=== PATIENT | male | born 1975 | race African-American/Black ===

== ENCOUNTER 2021-11-07 15:33 | Inpatient (IN) ==
--- NOTE | 2021-11-07 15:39 | ED Triage Note ---
Date of Service November 07, 2021 History of Present Illness This patient was briefly evaluated while in triage. An abbreviated physical exam was performed. This patient is a 46-year-old Male from [facility] with past medical history of incarcerated umbilical hernia repair on 11/01/2021 who presents to the ED for evaluation of constipation x2 days, vomiting, and "the gas they used in there keeps swelling up and going down." "They did an xray and they found a blockage and the front of my wound where they did the surgery is leaking. They said the hernia is popped back out." Physical Exam VITALS: Vitals are noted on the nurse's note and reviewed by myself. GENERAL: This is a 46 year old black male, in no acute distress, nondiaphoretic, well-developed well-nourished. Pt. handcuffed throughout triage. SKIN: No obvious rashes, edema, erythema HEAD: Normocephalic atraumatic. EYES: Conjunctivae without injection, sclerae without icterus. NECK: No JVD. LUNGS: No retractions or accessory muscle use. MUSCULOSKELETAL: Normal gait. NEURO: Patient was alert and oriented to person place and time. No focal neurological deficits. Initial orders for labs and / or imaging were placed and patient was placed in the waiting area until a bed is available. Please see further documentation for the full ED course. MDM / Impression Impression Impression: SBO (small bowel obstruction), Abdominal pain, Vomiting
[2021-11-07] MEDS ORDERED: SODIUM CHLORIDE 0.9% 1000ML 1,000 ML IV STA (15:40)
[2021-11-07] MEDS ORDERED: ONDANSETRON INJ 2 MG/ML 2 ML VIAL IV STA ×2 (15:40→19:50)
[2021-11-07 18:03] LABS: Basophils # (auto) 0.02 K/uL (0-0.2); Basophils % (auto) 0.3 %; Eosinophils # (auto) 0.12 K/uL (0-0.50); Eosinophils % (auto) 1.9 %; Hematocrit (blood only) 44.8 % (40.1-51.0); Hemoglobin 14.8 g/dl (14.0-18.0); Immature Granulocytes # (auto) 0.04 K/uL (0.00-0.02); Immature Granulocytes % (auto) 0.6 %; Lymphocytes % (auto) 27.3 %; Mean Corpuscular Hemoglobin 28.1 pg (25.0-34.0); Mean Corpuscular Volume 85.2 fL (80.0-100.0); Mean Platelet Volume 9.2 fL (9.4-12.4); Monocytes # (auto) 0.71 K/uL (0.24-0.82); Monocytes % (auto) 11.4 %; Neutrophils # (auto) 3.64 K/uL (1.4-6.5); Neutrophils % (auto) 58.5 %; Platelet Count 419 K/uL (130-400); RDW Standard Deviation 40.3 fL (36.4-46.3); Red Blood Count 5.26 M/uL (4.63-6.08); White Blood Count 6.23 K/ul (4.8-10.8)
[2021-11-07 18:46] LABS: Albumin Globulin Ratio 1.1 (0.9-2); Albumin Level 4.3 gm/dl (3.4-5.0); BUN Creatinine Ratio 9.2 (10-20); Bilirubin,Total 0.5 mg/dl (0.2-1.0); Creatinine Clr Calc Pharmacy 71.6 ml/min; Est GFR (African American) 76.2 ml/min; Est GFR (Non-African American) 65.8 ml/min; Globulin 3.8 gm/dl (2.5-4.0); Potassium 3.8 mmol/L (3.5-5.1); Total Protein 8.1 gm/dl (6.0-8.3)
[2021-11-07] MEDS ORDERED: IOVERSOL 350 MG 100mL Prefilled Syringe IV ONE (19:03)
--- NOTE | 2021-11-07 19:33 | CT Scan Report ---
ABDOMEN AND PELVIS CT WITH IV AND ORAL CONTRAST CT DOSE: 664.61 mGy.cm HISTORY: Acute generalized abdominal pain with prior abdominal hernia repair 6 days earlier. Acute na usea with vomiting. Abdominal pain s/p incarcerated hernia repair TECHNIQUE: Multiaxial CT images of the abdomen and pelvis were performed following the IV administrat ion of 94 cc of Optiray and oral contrast. A dose lowering technique was utilized adhering to the pr inciples of ANA. COMPARISON STUDY: None. FINDINGS: Clear lung bases. There is no pneumatosis or pneumoperitoneum. Unremarkable spleen, pancrea s, gallbladder and adrenal glands. The liver is also within normal limits. Patency of the hepatic and portal veins. 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 1.7 cm cyst of the supe rior pole left kidney. There are a few subcentimeter hypodensities of the kidneys which are too small to characterize. No hydronephrosis. Unremarkable urinary bladder. The prostate is upper limits of no rmal in size. Small fat filled left inguinal hernia. Aorta and IVC appear unremarkable. There is no l ymphadenopathy. Small fat filled left inguinal hernia. Small hiatal hernia with contrast within the distended distal esophagus. Small bowel obstruction with dilated air and contrast filled loops of small bowel within the central abdomen measuring up to 3.9 cm. Focal transition point is present within the abdominal left lower quadrant on image 246 series 3. Moderate sized umbilical/supraumbilical hernia, diastases of 5.2 x 10.2 cm. The hernia sac contains mesenteric edema with trace ascites, mesenteric fat and nondilated contrast-filled loops of small bow el. Small volume of ascites dependent pelvis. Colonic diverticulosis. Moderate fecal retention. The a ppendix is fluid-filled and measures within the upper limits of normal at 7 mm. Fluid within the cecu m. No acute fracture. IMPRESSION: 1. At least partial small bowel obstruction with transition point within the abdominal left lower alisa drant. Contrast extends into decompressed loops of small bowel distal to the site of narrowing. 2. Moderate sized ventral abdominal wall hernia contains mesenteric fat and decompressed loops of sma ll bowel. 3. Mesenteric edema with trace abdominal pelvic ascites. 4. No pneumatosis or pneumoperitoneum. 5. Air-fluid levels are noted within the colon. The appendix is also fluid-filled and measures within the upper limits of normal at 7 mm. Acute appendicitis is considered unlikely. Clinical follow-up re commended. ACT 112: Negative or not required by law. The above report was generated using voice recognition software. It may contain grammatical, syntax o r spelling errors. Electronically signed by: Marito Mahoney M.D. 11/07/2021 7:31 PM
[2021-11-07] MEDS ORDERED: SODIUM CHLORIDE 0.9% 1000ML 1,000 ML IV ONE (19:39)
[2021-11-07] MEDS ORDERED: MoRPHine SULFATE 4 MG/ML 1 ML CARP\\VIAL IV STA (19:50)
--- NOTE | 2021-11-07 19:54 | Emergency Department Note ---
Impression & Plan SBO (small bowel obstruction), Abdominal pain, Vomiting ED Provider Note NAME: SAVANNAH [id number] KAMI AGE: 46 SEX: M : 1975 ARRIVES VIA: Walk-In INFORMANT: Patient ED PROVIDER(S): Salazar More DO CHIEF COMPLAINT: abdominal pain N/V HPI: Patient is a 46-year-old male who presents the ER with a past medical history of an incarcerated umbilical hernia for nausea and vomiting. His surgery performed by Dr. Mcrae was done on the . Since being discharged his pain was improved as well as hernia. [facility] in the [facility]. Later that night he was having nausea, vomiting, and since then he has not been able to eat anything and notes that anything he drinks he vomits back up unless he takes very small sips. He has some mild discomfort around the incision site and has been having some clear oozing. Denies any dysuria, urgency, or frequency. No other exacerbating or remitting factors. He notes this all started back up after he was coughing at the [facility] after his surgery. ROS: See above HPI for pertinent positives & negatives. A total of 10 systems reviewed and were otherwise negative. PAST MEDICAL HISTORY:See Below PAST SURGICAL HISTORY:See Below FAMILY HISTORY:See Below SOCIAL HISTORY:See Below HOME MEDICATIONS:See Below ALLERGIES:See Below VITALS:See Below PHYSICAL EXAMINATION: GENERAL: Sitting up in bed, alert, well appearing, well nourished, no distress, non-toxic EYE EXAM: normal conjunctiva. OROPHARYNX: no exudate, no erythema, lips, buccal mucosa, and tongue normal and mucous membranes are moist NECK: supple, no nuchal rigidity, no adenopathy, non-tender LUNGS: Clear to auscultation. Normal chest wall mechanics HEART: no murmurs, S1 normal and S2 normal ABDOMEN: abdomen soft, mild tenderness periumbilically with a protruding umbilicus which is reducible but then protrudes again. Incision appears to be clean and dry but does appear to be dry serous fluid on her underwear where it was leaking. UPPER EXTREMITIES: upper extremities are grossly normal. LOWER EXTREMITIES: No pitting edema. NEURO EXAM: Normal sensorium, cranial nerves II-XII grossly intact, normal speech, no gross weakness of arms, no gross weakness of legs. MEDICAL DECISION MAKING: Patient is a 46-year-old male who presents ER for above-stated complaint. IV was established blood work was obtained. Labs show no significant leukocytosis or anemia. BMP along with LFTs bilirubin and lipase is unremarkable. UA with small amount hematuria. COVID-negative. Patient was given IV fluids and morphine. CT abdomen pelvis showed a partial small bowel obstruction. Discussed with Dr. Pimentel who evaluate the patient at bedside and recommended admission to the hospitalist. Discussed with Dr. Israel Durham for further evaluation admission. Triage Nursing notes reviewed. Limited review of prior medical records performed Vital Signs: reviewed and remarkable for tachy Differential diagnosis: Differential diagnoses includes but is not limited to gastritis, peptic ulcer disease, GERD, gallbladder disease, pancreatitis, small bowel obstruction, acute coronary syndrome, pericarditis, ischemic bowel, irritable bowel disease, irritable bowel syndrome, appendicitis, diverticulitis, malignancy, hernia, urinary tract infection, torsion, /ectopic (if female), perforation, trauma, infectious. ER treatment provided: See below Diagnostics interpreted by me: ECG: none Cardiac Monitoring: An order was placed for continuous cardiac monitoring. The monitor shows a rate of 82 with sinus rhythm. Laboratory studies: As stated above and show below. Imaging studies: CT abdomen pelvis as described above Consultation(s): Discussed with Dr. Lozano for admission Discussed with Dr. Pimentel who recommended consulting the hospitalist for admission Procedures: none Critical Care: None Past Med/Surg History Medical History (Updated 11/07/21 @ 22:27 by Salazar More DO) Asthma GERD (gastroesophageal reflux disease) History of hemorrhoids removal of hemorrhoids Hyperlipemia Incarcerated umbilical hernia Joint pain Surgical History (Updated 11/02/21 @ 10:48 by Padmaja Coreas RN) H/O umbilical hernia repair (11/01/21) Open ventral and umbilical hernia Repair with Mesh, incarcerated (Not Applicable) - Jorje Mcrae DO, FACS H/O ventral hernia repair (~11/01/21) Open ventral and umbilical hernia Repair with Mesh, incarcerated (Not Applicable) - Jorje Mcrae DO, FACS History of wisdom tooth extraction Social History Smoking Status: Never smoker Preferred Language: Guamanian Communication Ability: Effective 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 Beliefs That Will Affect Care: None Current Living Situation: Other Current Living Situation Comment: incarcerated at [facility] Feels Safe at Home: Yes Allergies Allergies Allergy/AdvReac Type Severity Reaction Status Date / Time wool Allergy Mild Unknown Verified 11/07/21 20:06 Home Meds Home Medications Medication Instructions Recorded Confirmed albuterol sulfate 90 mcg/actuation 2 puff inhalation QID PRN 08/24/21 11/07/21 aerosol inhaler Shortness Of Breath montelukast 10 mg tablet 10 mg PO DAILY 08/24/21 11/07/21 lactulose 10 gram/15 mL (15 mL) 20 g PO BID PRN Constipation 11/07/21 11/07/21 oral solution rosuvastatin 10 mg tablet 10 mg PO DAILY 11/07/21 11/07/21 Results & Data (ED) Vital Signs Vital Signs - 24 hr 11/07/21 15:37 11/07/21 20:01 11/07/21 20:30 Temperature 36.8 C Temperature Source Temporal Artery Scan Pulse Rate 96 H 73 86 Pulse Rate from SpO2 Sensor 76 84 Respiratory Rate 20 23 16 Respiratory Effort / Characteristics Non-Labored Spontaneous Respiratory Depth Normal Respiratory Pattern Regular Blood Pressure 132/92 119/84 Blood Pressure Mean 105 95 Pulse Oximetry 97 97 98 Oxygen Delivery Method Room Air Room Air Sepsis Recent Fever Within 48 Hours No Sepsis New/Unexplained Change in Mental Status No Sepsis Action Taken by Nursing No Action Required 11/07/21 21:20 11/07/21 21:20 11/07/21 21:30 Temperature Temperature Source Pulse Rate 77 75 Pulse Rate from SpO2 Sensor 77 75 Respiratory Rate 19 23 Respiratory Effort / Characteristics Respiratory Depth Respiratory Pattern Blood Pressure 115/80 115/80 140/87 Blood Pressure Mean 91 91 104 Pulse Oximetry 98 98 Oxygen Delivery Method Room Air Room Air Sepsis Recent Fever Within 48 Hours Sepsis New/Unexplained Change in Mental Status Sepsis Action Taken by Nursing 11/07/21 22:00 Temperature Temperature Source Pulse Rate 80 Pulse Rate from SpO2 Sensor 80 Respiratory Rate 18 Respiratory Effort / Characteristics Respiratory Depth Respiratory Pattern Blood Pressure 143/87 H Blood Pressure Mean 105 Pulse Oximetry 96 Oxygen Delivery Method Room Air Sepsis Recent Fever Within 48 Hours Sepsis New/Unexplained Change in Mental Status Sepsis Action Taken by Nursing Laboratory Data Result diagrams: 11/07/21 17:49 11/07/21 17:49 Lab Results 11/07/21 11/07/21 11/07/21 Range/Units 17:49 17:49 17:49 WBC 6.23 (4.8-10.8) K/ul RBC 5.26 (4.63-6.08) M/uL Hgb 14.8 (14.0-18.0) g/dl Hct 44.8 (40.1-51.0) % MCV 85.2 (80.0-100.0) fL MCH 28.1 (25.0-34.0) pg MCHC 33.0 (32.0-36.0) g/dL RDW Std Deviation 40.3 (36.4-46.3) fL RDW Coeff of Roc 13.0 (11.5-14.5) % Plt Count 419 H (130-400) K/uL MPV 9.2 L (9.4-12.4) fL Immature Gran % (Auto) 0.6 % Neut % (Auto) 58.5 % Lymph % (Auto) 27.3 % Gladwin % (Auto) 11.4 % Eos % (Auto) 1.9 % Baso % (Auto) 0.3 % Neut # (Auto) 3.64 (1.4-6.5) K/uL Lymph # (Auto) 1.70 (1.2-3.4) K/uL Gladwin # (Auto) 0.71 (0.24-0.82) K/uL Eos # (Auto) 0.12 (0-0.50) K/uL Baso # (Auto) 0.02 (0-0.2) K/uL Immature Gran # (Auto) 0.04 H (0.00-0.02) K/uL Sodium 137 (136-145) mmol/L Potassium 3.8 (3.5-5.1) mmol/L Chloride 97 L (98-107) mmol/L Carbon Dioxide 32 (21-32) mmol/L Anion Gap 8 (3-11) BUN 12 (6-23) mg/dl Creatinine 1.31 (0.6-1.4) mg/dl Est Cr Clr Drug Dosing 71.6 ml/min Est GFR ( Amer) 76.2 ml/min Est GFR (Non-Af Amer) 65.8 ml/min BUN/Creatinine Ratio 9.2 L (10-20) Glucose 103 H (70-99(Fasting)) mg/dl Lactate 1.0 (0.4-2.0) mmol/L Calcium 10.0 (8.5-10.1) mg/dl Magnesium (1.7-2.4) mg/dl Total Bilirubin 0.5 (0.2-1.0) mg/dl AST 20 (13-39) U/L ALT 32 (7-52) U/L Alkaline Phosphatase 61 (34-104) U/L Total Protein 8.1 (6.0-8.3) gm/dl Albumin 4.3 (3.4-5.0) gm/dl Globulin 3.8 (2.5-4.0) gm/dl Albumin/Globulin Ratio 1.1 (0.9-2) Lipase 11 (11-82) U/L Urine Color Urine Appearance (Clear) Urine pH (4.5-7.5) Ur Specific Karthaus (1.000-1.030) Urine Protein (Negative) Urine Glucose (UA) (Negative) Urine Ketones (Negative) Urine Blood (Negative) Urine Nitrite (Negative) Urine Bilirubin (Negative) Urine Urobilinogen (Negative) Ur Leukocyte Esterase (Negative) Urine WBC (Auto) (0-5) /hpf Urine RBC (Auto) (0-4) /hpf U Hyaline Cast (Auto) (0-5) /lpf U Epithel Cells (Auto) (0-5) /lpf Urine Bacteria (Auto) (Negative) SARS-CoV-2, RNA, NAAT (NEGATIVE) 11/07/21 11/07/21 11/07/21 Range/Units 19:58 19:58 20:08 WBC (4.8-10.8) K/ul RBC (4.63-6.08) M/uL Hgb (14.0-18.0) g/dl Hct (40.1-51.0) % MCV (80.0-100.0) fL MCH (25.0-34.0) pg MCHC (32.0-36.0) g/dL RDW Std Deviation (36.4-46.3) fL RDW Coeff of Roc (11.5-14.5) % Plt Count (130-400) K/uL MPV (9.4-12.4) fL Immature Gran % (Auto) % Neut % (Auto) % Lymph % (Auto) % Gladwin % (Auto) % Eos % (Auto) % Baso % (Auto) % Neut # (Auto) (1.4-6.5) K/uL Lymph # (Auto) (1.2-3.4) K/uL Gladwin # (Auto) (0.24-0.82) K/uL Eos # (Auto) (0-0.50) K/uL Baso # (Auto) (0-0.2) K/uL Immature Gran # (Auto) (0.00-0.02) K/uL Sodium (136-145) mmol/L Potassium (3.5-5.1) mmol/L Chloride (98-107) mmol/L Carbon Dioxide (21-32) mmol/L Anion Gap (3-11) BUN (6-23) mg/dl Creatinine (0.6-1.4) mg/dl Est Cr Clr Drug Dosing ml/min Est GFR ( Amer) ml/min Est GFR (Non-Af Amer) ml/min BUN/Creatinine Ratio (10-20) Glucose (70-99(Fasting)) mg/dl Lactate 0.8 (0.4-2.0) mmol/L Calcium (8.5-10.1) mg/dl Magnesium (1.7-2.4) mg/dl Total Bilirubin (0.2-1.0) mg/dl AST (13-39) U/L ALT (7-52) U/L Alkaline Phosphatase (34-104) U/L Total Protein (6.0-8.3) gm/dl Albumin (3.4-5.0) gm/dl Globulin (2.5-4.0) gm/dl Albumin/Globulin Ratio (0.9-2) Lipase (11-82) U/L Urine Color Yellow Urine Appearance Clear (Clear) Urine pH 6.5 (4.5-7.5) Ur Specific Karthaus > 1.045 H (1.000-1.030) Urine Protein Negative (Negative) Urine Glucose (UA) Negative (Negative) Urine Ketones Trace H (Negative) Urine Blood Trace H (Negative) Urine Nitrite Negative (Negative) Urine Bilirubin Negative (Negative) Urine Urobilinogen Negative (Negative) Ur Leukocyte Esterase Negative (Negative) Urine WBC (Auto) 1-5 (0-5) /hpf Urine RBC (Auto) 0-4 (0-4) /hpf U Hyaline Cast (Auto) 0 (0-5) /lpf U Epithel Cells (Auto) 0-5 (0-5) /lpf Urine Bacteria (Auto) Negative (Negative) SARS-CoV-2, RNA, NAAT NEGATIVE (NEGATIVE) 11/07/21 Range/Units 20:09 WBC (4.8-10.8) K/ul RBC (4.63-6.08) M/uL Hgb (14.0-18.0) g/dl Hct (40.1-51.0) % MCV (80.0-100.0) fL MCH (25.0-34.0) pg MCHC (32.0-36.0) g/dL RDW Std Deviation (36.4-46.3) fL RDW Coeff of Roc (11.5-14.5) % Plt Count (130-400) K/uL MPV (9.4-12.4) fL Immature Gran % (Auto) % Neut % (Auto) % Lymph % (Auto) % Gladwin % (Auto) % Eos % (Auto) % Baso % (Auto) % Neut # (Auto) (1.4-6.5) K/uL Lymph # (Auto) (1.2-3.4) K/uL Gladwin # (Auto) (0.24-0.82) K/uL Eos # (Auto) (0-0.50) K/uL Baso # (Auto) (0-0.2) K/uL Immature Gran # (Auto) (0.00-0.02) K/uL Sodium (136-145) mmol/L Potassium (3.5-5.1) mmol/L Chloride (98-107) mmol/L Carbon Dioxide (21-32) mmol/L Anion Gap (3-11) BUN (6-23) mg/dl Creatinine (0.6-1.4) mg/dl Est Cr Clr Drug Dosing ml/min Est GFR ( Amer) ml/min Est GFR (Non-Af Amer) ml/min BUN/Creatinine Ratio (10-20) Glucose (70-99(Fasting)) mg/dl Lactate (0.4-2.0) mmol/L Calcium (8.5-10.1) mg/dl Magnesium 2.1 (1.7-2.4) mg/dl Total Bilirubin (0.2-1.0) mg/dl AST (13-39) U/L ALT (7-52) U/L Alkaline Phosphatase (34-104) U/L Total Protein (6.0-8.3) gm/dl Albumin (3.4-5.0) gm/dl Globulin (2.5-4.0) gm/dl Albumin/Globulin Ratio (0.9-2) Lipase (11-82) U/L Urine Color Urine Appearance (Clear) Urine pH (4.5-7.5) Ur Specific Karthaus (1.000-1.030) Urine Protein (Negative) Urine Glucose (UA) (Negative) Urine Ketones (Negative) Urine Blood (Negative) Urine Nitrite (Negative) Urine Bilirubin (Negative) Urine Urobilinogen (Negative) Ur Leukocyte Esterase (Negative) Urine WBC (Auto) (0-5) /hpf Urine RBC (Auto) (0-4) /hpf U Hyaline Cast (Auto) (0-5) /lpf U Epithel Cells (Auto) (0-5) /lpf Urine Bacteria (Auto) (Negative) SARS-CoV-2, RNA, NAAT (NEGATIVE) Administered Medications Discontinued Medications Sodium Chloride (Nss 1000ml) 1,000 mls @ 999 mls/hr IV .Q1H1M STA Stop: 11/07/21 16:40 Last Infusion: 11/07/21 20:06 Dose: 0 mls/hr Documented By: Admin: 11/07/21 17:58 Dose: 999 mls/hr Documented By: SOHAIL Sodium Chloride (Nss 1000ml) 1,000 mls @ 999 mls/hr IV .Q1H1M ONE Stop: 11/07/21 20:39 Last Infusion: 11/07/21 21:32 Dose: 0 mls/hr Documented By: Admin: 11/07/21 20:15 Dose: 999 mls/hr Documented By: Ioversol (Ioversol 350 Mg 100ml Prefilled Syringe) 94 ml IV ONCE ONE Stop: 11/07/21 19:04 Last Admin: 11/07/21 19:04 Dose: 94 ml Documented By: SPRING Morphine Sulfate (Morphine Sulfate 4 Mg/Ml 1 Ml Carp\Vial) 4 mg IV NOW STA Stop: 11/07/21 19:51 Last Admin: 11/07/21 20:11 Dose: 4 mg Documented By: Ondansetron HCl (Ondansetron Inj 2 Mg/Ml 2 Ml Vial) 4 mg IV NOW STA Stop: 11/07/21 15:41 Last Admin: 11/07/21 17:58 Dose: Not Given Documented By: SOHAIL Ondansetron HCl (Ondansetron Inj 2 Mg/Ml 2 Ml Vial) 4 mg IV NOW STA Stop: 11/07/21 19:51 Last Admin: 11/07/21 20:13 Dose: 4 mg Documented By: Imaging Data Radiologist's Impression: Abdomen/Pelvis CT 11/07/21 15:[address] WITH IV AND ORAL CONTRAST CT DOSE: 664.61 mGy.cm HISTORY: Acute generalized abdominal pain with prior abdominal hernia repair 6 days earlier. Acute nausea with vomiting. Abdominal pain s/p incarcerated hernia repair TECHNIQUE: Multiaxial CT images of the abdomen and pelvis were performed following the IV administration of 94 cc of Optiray and oral contrast. A dose lowering technique was utilized adhering to the principles of ALARA. COMPARISON STUDY: None. FINDINGS: Clear lung bases. There is no pneumatosis or pneumoperitoneum. Unremarkable spleen, pancreas, gallbladder and adrenal glands. The liver is also within normal limits. Patency of the hepatic and portal veins. 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 1.7 cm cyst of the superior pole left kidney. There are a few subcentimeter hypodensities of the kidneys wh ich are too small to characterize. No hydronephrosis. Unremarkable urinary bladder. The prostate is upper limits of normal in size. Small fat filled left inguinal hernia. Aorta and IVC appear unremarkable. There is no lymphadenopathy. Small fat filled left inguinal hernia. Small hiatal hernia with contrast within the distended distal esophagus. Small bowel obstruction with dilated air and contrast filled loops of small bowel within the central abdomen measuring up to 3.9 cm. Focal transition point is present within the abdominal left lower quadrant on image 246 series 3. Moderate sized umbilical/supraumbilical hernia, diastases of 5.2 x 10.2 cm. The hernia sac contains mesenteric edema with trace ascites, mesenteric fat and nondilated contrast-filled loops of small bowel. Small volume of ascites dependent pelvis. Colonic diverticulosis. Moderate fecal retention. The appendix is fluid-filled and measures within the upper limits of normal at 7 mm. Fluid within the cecum. No acute fracture. IMPRESSION: 1. At least partial small bowel obstruction with transition point within the abdominal left lower quadrant. Contrast extends into decompressed loops of small bowel distal to the site of narrowing. 2. Moderate sized ventral abdominal wall hernia contains mesenteric fat and decompressed loops of small bowel. 3. Mesenteric edema with trace abdominal pelvic ascites. 4. No pneumatosis or pneumoperitoneum. 5. Air-fluid levels are noted within the colon. The appendix is also fluid- filled and measures within the upper limits of normal at 7 mm. Acute appendicitis is considered unlikely. Clinical follow-up recommended. ACT 112: Negative or not required by law. The above report was generated using voice recognition software. It may contain grammatical, syntax or spelling errors. Electronically signed by: Marito Mahoney M.D. 11/07/2021 7:31 PM Discharge Plan Visit Data Chief Complaint: Constipation Stated Complaint: constipation, abdominal pain, surgical wound leak ED Provider: Salazar More Discharge Problem: SBO (small bowel obstruction), Abdominal pain, Vomiting Forms Stand Alone Forms: [employer] Prescriptions Prescriptions: No Action montelukast 10 mg tablet 10 mg PO DAILY albuterol sulfate 90 mcg/actuation HFA aerosol inhaler 2 puff inhalation QID PRN (Reason: Shortness Of Breath) rosuvastatin 10 mg Tablet 10 mg PO DAILY lactulose 10 gram/15 mL (15 mL) Solution 20 g PO BID PRN (Reason: Constipation) Referrals Referrals: Basil Herring MD [Outside Practitioners] -
[2021-11-07 20:29] LABS: Appearance Urine Clear (Clear); Bacteria Urine Automated Negative (Negative); Bilirubin Urine Negative (Negative); Blood Urine Trace (Negative); Cast Urine Automated 0 /lpf (0-5); Color Urine Yellow; Epithelial Cell Urine Auto 0-5 /lpf (0-5); Glucose Urine UA Negative (Negative); Ketones Urine Trace (Negative); Leukocyte Esterase Urine Negative (Negative); Nitrite Urine Negative (Negative); Protein Urine Negative (Negative); RBC Urine Automated 0-4 /hpf (0-4); Specific Gravity Urine > 1.045 (1.000-1.030); Urobilinogen Urine Negative (Negative); pH Urine 6.5 (4.5-7.5)
--- NOTE | 2021-11-07 22:11 | Surgery Consultation ---
Date of Consultation November 07, 2021 Assessment & Plan (1) SBO (small bowel obstruction): pt is a 46 year-old male who presents to Er with S/P open repair incarcerated umbilical hernia by Dr. Law one week ago, pt presents to Er with abdominal pain, nausea and vomiting, for 6 days, IMP: PSBO, recurrent ventral hernia, plan, admit to hospital, conservative treatment first, NPO, iv fluid, control pain, repeat labs in morning, NG tube, pt prefer Dr Law to take acre him, I will D/W Dr. Law in morning, pt agrees with the plan, I answered all questions, History of Present Illness Reason for Consultation: PSBO Requesting Physician: Salazar More MD History of Present Illness CHIEF COMPLAINT: abdominal pain N/V HPI: Patient is a 46-year-old male who presents the ER with a past medical history of an incarcerated umbilical hernia for nausea vomiting. His surgery performed by Dr. Mcrae was done on the . Since being discharged his pain was improved as well as hernia. When he [facility] Later that night he was having nausea vomiting and since then he has not been able to eat anything and notes that anything he drinks he vomits back up unless he takes very small sips. He has some mild discomfort around the incision site and has been having some clear oozing. Denies any dysuria urgency or frequency. No other exacerbating or remitting factors. He notes this all started back up after he was coughing at the [facility] after his surgery. I ( Kirstin elmore MD ) got a call for consult PSBO, I reviewed pt's H/P, labs, CT scan with pt, ROS: See above HPI for pertinent positives & negatives. A total of 10 systems reviewed and were otherwise negative. Allergies Allergy/AdvReac Type Severity Reaction Status Date / Time wool Allergy Mild Unknown Verified 11/07/21 20:06 Home Medications Medication Instructions Recorded Confirmed Type albuterol sulfate 90 mcg/actuation 2 puff inhalation QID PRN 08/24/21 11/07/21 History aerosol inhaler Shortness Of Breath montelukast 10 mg tablet 10 mg PO DAILY 08/24/21 11/07/21 History lactulose 10 gram/15 mL (15 mL) 20 g PO BID PRN Constipation 11/07/21 11/07/21 History oral solution rosuvastatin 10 mg tablet 10 mg PO DAILY 11/07/21 11/07/21 History Patient History Medical History (Updated 11/07/21 @ 22:13 by Kirstin Elmore MD) Asthma GERD (gastroesophageal reflux disease) History of hemorrhoids removal of hemorrhoids Hyperlipemia Incarcerated umbilical hernia Joint pain Surgical History (Updated 11/02/21 @ 10:48 by Padmaja Coreas RN) H/O umbilical hernia repair (11/01/21) Open ventral and umbilical hernia Repair with Mesh, incarcerated (Not Applicable) - Jorje Mcrae DO, FACS H/O ventral hernia repair (~11/01/21) Open ventral and umbilical hernia Repair with Mesh, incarcerated (Not Applica ble) - Jorje Mcrae DO, FACS History of wisdom tooth extraction Social History Smoking Status: Never smoker Preferred Language: Bhutanese Communication Ability: Effective 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 Beliefs That Will Affect Care: None Current Living Situation: Other Current Living Situation Comment: incarcerated at [facility] Feels Safe at Home: Yes Physical Exam Constitutional: WD/WN, vitals as above Eyes: PERRL, conjunctivae normal, anicteric sclerae no distress Neck: trachea midline, no thyromegaly Respiratory: normal respiratory effort, lungs clear to auscultation Cardiovascular: RRR, no murmur, no edema Gastrointestinal (Abdomen): soft, bulging on umbilical area, mild redness, mild tenderness ,m no rebound pain, no distend, BS +, Musculoskeletal: no cyanosis or clubbing, extremities motor strength 5/5 Neurologic: patellar DTR's 2+ bilat, sensation intact Psychiatric: A+Ox3, euthymic affect Results & Data ([facility]) Vital Signs (Past 12 Hours) Vital Signs Temp Pulse Resp BP Pulse Ox O2 Del Method 11/07/21 21:30 75 23 140/87 98 Room Air 11/07/21 21:20 77 19 115/80 98 Room Air 11/07/21 21:20 115/80 11/07/21 20:30 86 16 119/84 98 Room Air 11/07/21 20:01 73 23 97 11/07/21 15:37 36.8 C 96 H 20 132/92 97 Room Air Laboratory Results Abnormal lab results 11/07/21 11/07/21 11/07/21 Range/Units 17:49 17:49 19:58 Plt Count 419 H (130-400) K/uL MPV 9.2 L (9.4-12.4) fL Immature Gran # (Auto) 0.04 H (0.00-0.02) K/uL Chloride 97 L (98-107) mmol/L BUN/Creatinine Ratio 9.2 L (10-20) Glucose 103 H (70-99(Fasting)) mg/dl Ur Specific [place] > 1.045 H (1.000-1.030) Urine Ketones Trace H (Negative) Urine Blood Trace H (Negative) Diagnostic Findings ABDOMEN AND PELVIS CT WITH IV AND ORAL CONTRAST CT DOSE: 664.61 mGy.cm HISTORY: Acute generalized abdominal pain with prior abdominal hernia repair 6 days earlier. Acute nausea with vomiting. Abdominal pain s/p incarcerated hernia repair TECHNIQUE: Multiaxial CT images of the abdomen and pelvis were performed following the IV administration of 94 cc of Optiray and oral contrast. A dose lowering technique was utilized adhering to the principles of ALARA. COMPARISON STUDY: None. FINDINGS: Clear lung bases. There is no pneumatosis or pneumoperitoneum. Unremarkable spleen, pancreas, gallbladder and adrenal glands. The liver is also within normal limits. Patency of the hepatic and portal veins. 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 1.7 cm cyst of the superior pole left kidney. There are a few subcentimeter hypodensities of the kidneys which are too small to characterize. No hydronephrosis. Unremarkable urinary bladder. The prostate is upper limits of normal in size. Small fat filled left inguinal hernia. Aorta and IVC appear unremarkable. There is no lymphadenopathy. Small fat filled left inguinal hernia. Small hiatal hernia with contrast within the distended distal esophagus. Small bowel obstruction with dilated air and contrast filled loops of small bowel within the central abdomen measuring up to 3.9 cm. Focal transition point is present within the abdominal left lower quadrant on image 246 series 3. Moderate sized umbilical/supraumbilical hernia, diastases of 5.2 x 10.2 cm. The hernia sac contains mesenteric edema with trace ascites, mesenteric fat and nondilated contrast-filled loops of small bowel. Small volume of ascites dependent pelvis. Colonic diverticulosis. Moderate fecal retention. The appendix is fluid-filled and measures within the upper limits of normal at 7 mm. Fluid within the cecum. No acute fracture. IMPRESSION: 1. At least partial small bowel obstruction with transition point within the abdominal left lower quadrant. Contrast extends into decompressed loops of small bowel distal to the site of narrowing. 2. Moderate sized ventral abdominal wall hernia contains mesenteric fat and decompressed loops of small bowel. 3. Mesenteric edema with trace abdominal pelvic ascites. 4. No pneumatosis or pneumoperitoneum. 5. Air-fluid levels are noted within the colon. The appendix is also fluid- filled and measures within the upper limits of normal at 7 mm. Acute appendicitis is considered unlikely. Clinical follow-up recommended. ACT 112: Negative or not required by law.
--- NOTE | 2021-11-07 22:34 | History & Physical Report ---
Date of Service November 07, 2021 History of Present Illness Primary Care Provider: [facility] [place] Allergies Allergy/AdvReac Type Severity Reaction Status Date / Time wool Allergy Mild Unknown Verified 11/07/21 20:06 Home Medications Medication Instructions Recorded Confirmed Type albuterol sulfate 90 mcg/actuation 2 puff inhalation QID PRN 08/24/21 11/07/21 History aerosol inhaler Shortness Of Breath montelukast 10 mg tablet 10 mg PO DAILY 08/24/21 11/07/21 History lactulose 10 gram/15 mL (15 mL) 20 g PO BID PRN Constipation 11/07/21 11/07/21 History oral solution rosuvastatin 10 mg tablet 10 mg PO DAILY 11/07/21 11/07/21 History Past Med/Surg History Medical History (Updated 11/07/21 @ 22:27 by Salazar More DO) Asthma GERD (gastroesophageal reflux disease) History of hemorrhoids removal of hemorrhoids Hyperlipemia Incarcerated umbilical hernia Joint pain Surgical History (Updated 11/02/21 @ 10:48 by Padmaja Coreas RN) H/O umbilical hernia repair (11/01/21) Open ventral and umbilical hernia Repair with Mesh, incarcerated (Not Applicable) - Jorje Mcrae DO, FACS H/O ventral hernia repair (~11/01/21) Open ventral and umbilical hernia Repair with Mesh, incarcerated (Not Applicable) - Jorje Mcrae DO, FACS History of wisdom tooth extraction Social History Smoking Status: Never smoker Preferred Language: Uzbek Communication Ability: Effective 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 Beliefs That Will Affect Care: None Current Living Situation: Other Current Living Situation Comment: incarcerated at [facility] Feels Safe at Home: Yes Results & Data Results & Data ([facility]) Vital Signs (Past 12 Hours) Vital Signs Temp Pulse Resp BP Pulse Ox O2 Del Method 11/07/21 22:00 80 18 143/87 H 96 Room Air 11/07/21 21:30 75 23 140/87 98 Room Air 11/07/21 21:20 77 19 115/80 98 Room Air 11/07/21 21:20 115/80 11/07/21 20:30 86 16 119/84 98 Room Air 11/07/21 20:01 73 23 97 11/07/21 15:37 36.8 C 96 H 20 132/92 97 Room Air Laboratory Results Laboratory Results WBC 6.23 K/ul (4.8-10.8) 11/07/21 17:49 RBC 5.26 M/uL (4.63-6.08) 11/07/21 17:49 Hgb 14.8 g/dl (14.0-18.0) 11/07/21 17:49 Hct 44.8 % (40.1-51.0) 11/07/21 17:49 MCV 85.2 fL (80.0-100.0) 11/07/21 17:49 MCH 28.1 pg (25.0-34.0) 11/07/21 17:49 MCHC 33.0 g/dL (32.0-36.0) 11/07/21 17:49 RDW Std Deviation 40.3 fL (36.4-46.3) 11/07/21 17:49 RDW Coeff of Roc 13.0 % (11.5-14.5) 11/07/21 17:49 Plt Count 419 K/uL (130-400) H 11/07/21 17:49 MPV 9.2 fL (9.4-12.4) L 11/07/21 17:49 Immature Gran % (Auto) 0.6 % 11/07/21 17:49 Neut % (Auto) 58.5 % 11/07/21 17:49 Lymph % (Auto) 27.3 % 11/07/21 17:49 Edmunds % (Auto) 11.4 % 11/07/21 17:49 Eos % (Auto) 1.9 % 11/07/21 17:49 Baso % (Auto) 0.3 % 11/07/21 17:49 Neut # (Auto) 3.64 K/uL (1.4-6.5) 11/07/21 17:49 Lymph # (Auto) 1.70 K/uL (1.2-3.4) 11/07/21 17:49 Edmunds # (Auto) 0.71 K/uL (0.24-0.82) 11/07/21 17:49 Eos # (Auto) 0.12 K/uL (0-0.50) 11/07/21 17:49 Baso # (Auto) 0.02 K/uL (0-0.2) 11/07/21 17:49 Immature Gran # (Auto) 0.04 K/uL (0.00-0.02) H 11/07/21 17:49 Sodium 137 mmol/L (136-145) 11/07/21 17:49 Potassium 3.8 mmol/L (3.5-5.1) 11/07/21 17:49 Chloride 97 mmol/L (98-107) L 11/07/21 17:49 Carbon Dioxide 32 mmol/L (21-32) 11/07/21 17:49 Anion Gap 8 (3-11) 11/07/21 17:49 BUN 12 mg/dl (6-23) 11/07/21 17:49 Creatinine 1.31 mg/dl (0.6-1.4) 11/07/21 17:49 Est Cr Clr Drug Dosing 71.6 ml/min 11/07/21 17:49 Est GFR ( Amer) 76.2 ml/min 11/07/21 17:49 Est GFR (Non-Af Amer) 65.8 ml/min 11/07/21 17:49 BUN/Creatinine Ratio 9.2 (10-20) L 11/07/21 17:49 Glucose 103 mg/dl (70-99(Fasting)) H 11/07/21 17:49 Lactate 0.8 mmol/L (0.4-2.0) 11/07/21 20:08 Calcium 10.0 mg/dl (8.5-10.1) 11/07/21 17:49 Magnesium 2.1 mg/dl (1.7-2.4) 11/07/21 20:09 Total Bilirubin 0.5 mg/dl (0.2-1.0) 11/07/21 17:49 AST 20 U/L (13-39) 11/07/21 17:49 ALT 32 U/L (7-52) 11/07/21 17:49 Alkaline Phosphatase 61 U/L (34-104) 11/07/21 17:49 Total Protein 8.1 gm/dl (6.0-8.3) 11/07/21 17:49 Albumin 4.3 gm/dl (3.4-5.0) 11/07/21 17:49 Globulin 3.8 gm/dl (2.5-4.0) 11/07/21 17:49 Albumin/Globulin Ratio 1.1 (0.9-2) 11/07/21 17:49 Lipase 11 U/L (11-82) 11/07/21 17:49 Urine Color Yellow 11/07/21 19:58 Urine Appearance Clear (Clear) 11/07/21 19:58 Urine pH 6.5 (4.5-7.5) 11/07/21 19:58 Ur Specific [place] > 1.045 (1.000-1.030) H 11/07/21 19:58 Urine Protein Negative (Negative) 11/07/21 19:58 Urine Glucose (UA) Negative (Negative) 11/07/21 19:58 Urine Ketones Trace (Negative) H 11/07/21 19:58 Urine Blood Trace (Negative) H 11/07/21 19:58 Urine Nitrite Negative (Negative) 11/07/21 19:58 Urine Bilirubin Negative (Negative) 11/07/21 19:58 Urine Urobilinogen Negative (Negative) 11/07/21 19:58 Ur Leukocyte Esterase Negative (Negative) 11/07/21 19:58 Urine WBC (Auto) 1-5 /hpf (0-5) 11/07/21 19:58 Urine RBC (Auto) 0-4 /hpf (0-4) 11/07/21 19:58 U Hyaline Cast (Auto) 0 /lpf (0-5) 11/07/21 19:58 U Epithel Cells (Auto) 0-5 /lpf (0-5) 11/07/21 19:58 Urine Bacteria (Auto) Negative (Negative) 11/07/21 19:58 SARS-CoV-2, RNA, NAAT NEGATIVE (NEGATIVE) 11/07/21 19:58 Impressions Abdomen/Pelvis CT 11/07/21 15:[address] WITH IV AND ORAL CONTRAST CT DOSE: 664.61 mGy.cm HISTORY: Acute generalized abdominal pain with prior abdominal hernia repair 6 days earlier. Acute nausea with vomiting. Abdominal pain s/p incarcerated hernia repair TECHNIQUE: Multiaxial CT images of the abdomen and pelvis were performed following the IV administration of 94 cc of Optiray and oral contrast. A dose lowering technique was utilized adhering to the principles of ALARA. COMPARISON STUDY: None. FINDINGS: Clear lung bases. There is no pneumatosis or pneumoperitoneum. Unremarkable spleen, pancreas, gallbladder and adrenal glands. The liver is also within normal limits. Patency of the hepatic and portal veins. 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 1.7 cm cyst of the superior pole left kidney. There are a few subcentimeter hypodensities of the kidneys which are too small to characterize. No hydronephrosis. Unremarkable urinary bladder. The prostate is upper limits of normal in size. Small fat filled left inguinal hernia. Aorta and IVC appear unremarkable. There is no lymphadenopathy. Small fat filled left inguinal hernia. Small hiatal hernia with contrast within the distended distal esophagus. Small bowel obstruction with dilated air and contrast filled loops of small bowel within the central abdomen measuring up to 3.9 cm. Focal transition point is present within the abdominal left lower quadrant on image 246 series 3. Moderate sized umbilical/supraumbilical hernia, diastases of 5.2 x 10.2 cm. The hernia sac contains mesenteric edema with trace ascites, mesenteric fat and nondilated contrast-filled loops of small bowel. Small volume of ascites dependent pelvis. Colonic diverticulosis. Moderate fecal retention. The appendix is fluid-filled and measures within the upper limits of normal at 7 mm. Fluid within the cecum. No acute fracture. IMPRESSION: 1. At least partial small bowel obstruction with transition point within the abdominal left lower quadrant. Contrast extends into decompressed loops of small bowel distal to the site of narrowing. 2. Moderate sized ventral abdominal wall hernia contains mesenteric fat and decompressed loops of small bowel. 3. Mesenteric edema with trace abdominal pelvic ascites. 4. No pneumatosis or pneumoperitoneum. 5. Air-fluid levels are noted within the colon. The appendix is also fluid- filled and measures within the upper limits of normal at 7 mm. Acute appendicitis is considered unlikely. Clinical follow-up recommended. ACT 112: Negative or not required by law. The above report was generated using voice recognition software. It may contain grammatical, syntax or spelling errors. Electronically signed by: Marito Mahoney M.D. 11/07/2021 7:31 PM Code Status & VTE Plan VTE Prophylaxis Plan VTE Prophylaxis will be ordered: Yes
[2021-11-08] MEDS ORDERED: LACTULOSE SYRUP 20 GM/30 ML UDC PO PRN (00:07)
[2021-11-08] MEDS ORDERED: ALBUTEROL HFA 8 GM INHALER INH PRN (00:07)
[2021-11-08] MEDS ORDERED: HYDROmorphone INJ 1 MG/ML SYRINGE IV PRN (00:07)
[2021-11-08] MEDS ORDERED: HYDROmorphone INJ 0.5 MG/0.5 ML SYR IV PRN (00:07)
[2021-11-08] MEDS: PANTOprazole 40 MG in SYRINGE 0 ML IV SCH ×3 (01:57→20:13)
[2021-11-08] MEDS: LACTATED RINGER'S 1,000 ML IV SCH ×3 (01:57→16:42)
[2021-11-08 06:27] LABS: Basophils # (auto) 0.02 K/uL (0-0.2); Basophils % (auto) 0.4 %; Eosinophils # (auto) 0.09 K/uL (0-0.50); Eosinophils % (auto) 1.7 %; Hematocrit (blood only) 38.5 % (40.1-51.0); Hemoglobin 12.9 g/dl (14.0-18.0); Immature Granulocytes # (auto) 0.04 K/uL (0.00-0.02); Immature Granulocytes % (auto) 0.7 %; Lymphocytes # (auto) 1.33 K/uL (1.2-3.4); Lymphocytes % (auto) 24.9 %; Mean Corpuscular Hemoglobin 28.2 pg (25.0-34.0); Mean Corpuscular Hgb Conc 33.5 g/dL (32.0-36.0); Mean Corpuscular Volume 84.2 fL (80.0-100.0); Mean Platelet Volume 9.5 fL (9.4-12.4); Monocytes # (auto) 0.57 K/uL (0.24-0.82); Monocytes % (auto) 10.7 %; Neutrophils # (auto) 3.29 K/uL (1.4-6.5); Neutrophils % (auto) 61.6 %; Platelet Count 330 K/uL (130-400); RDW Standard Deviation 39.7 fL (36.4-46.3); Red Blood Count 4.57 M/uL (4.63-6.08); White Blood Count 5.34 K/ul (4.8-10.8)
[2021-11-08 06:30] LABS: Albumin Globulin Ratio 1.4 (0.9-2); Albumin Level 3.6 gm/dl (3.4-5.0); BUN Creatinine Ratio 8.8 (10-20); Bilirubin,Total 0.5 mg/dl (0.2-1.0); Calcium 8.7 mg/dl (8.5-10.1); Est GFR (African American) 91.1 ml/min; Est GFR (Non-African American) 78.6 ml/min; Globulin 2.5 gm/dl (2.5-4.0); Potassium 3.9 mmol/L (3.5-5.1); Total Protein 6.1 gm/dl (6.0-8.3)
[2021-11-08] MEDS ORDERED: ROSUVASTATIN CALCIUM 10 MG TAB PO SCH (09:00)
--- NOTE | 2021-11-08 09:31 | Anesthesiology Consultation ---
Date of Service November 08, 2021 Assessment & Plan (1) Encounter for pre-operative examination: Chart Review Chart Review: Acceptable Risk for Surgery and Patient NOT seen in Pre Admission Testing Consults Requested none History Surgery Operation Date: 11/08/21 13:10 Proposed Procedures p Diagnostic Laparoscopy Possible Robotic Repair of Ventral Hernia Possible Frances - Jorje Mcrae DO, FACS s Possible Bowel Resection versus Frances - Jorje Mcrae DO, FACS Height/Weight Height: 5 ft 6 in Weight: 80.2 kg Allergies Allergy/AdvReac Type Severity Reaction Status Date / Time wool Allergy Mild Unknown Verified 11/07/21 20:06 Medications Home Medications Medication Instructions Recorded Confirmed Last Taken albuterol sulfate 90 mcg/actuation 2 puff inhalation QID PRN 08/24/21 11/07/21 Unknown aerosol inhaler Shortness Of Breath montelukast 10 mg tablet 10 mg PO DAILY 08/24/21 11/07/21 10/27/21 lactulose 10 gram/15 mL (15 mL) 20 g PO BID PRN Constipation 11/07/21 11/07/21 Unknown oral solution rosuvastatin 10 mg tablet 10 mg PO DAILY 11/07/21 11/07/21 Unknown Active Medications Generic Name Dose Route Start Last Admin Trade Name Freq PRN Reason Stop Dose Admin Lactated Ringer's 1,000 mls @ 100 mls/hr 11/08/21 00:07 11/08/21 01:57 Lr IV 12/08/21 00:06 100 mls/hr .Q10H DEANNE Administration Pantoprazole Sodium 40 mg/ 10 mls @ 5 mls/min 11/08/21 00:07 11/08/21 09:08 Syringe IV 12/08/21 00:06 5 mls/min BID DEANNE Administration Rosuvastatin Calcium 10 mg 11/08/21 09:00 11/08/21 09:11 Rosuvastatin Calcium 10 Mg Tab PO 12/08/21 08:59 Not Given DAILY DEANNE Past Medical History Medical History Asthma GERD (gastroesophageal reflux disease) History of hemorrhoids removal of hemorrhoids Hyperlipemia Incarcerated umbilical hernia Joint pain Past Surgical History Surgical History H/O umbilical hernia repair (11/01/21) Open ventral and umbilical hernia Repair with Mesh, incarcerated (Not Bill licable) - Jorje Mcrae DO, FACS H/O ventral hernia repair (~11/01/21) Open ventral and umbilical hernia Repair with Mesh, incarcerated (Not Applicable) - Jorje Mcrae DO, FACS History of wisdom tooth extraction Social History Smoking Status: Former smoker Hx Alcohol Use: No Hx Substance Use: No Physical Exam Vital Signs Last Vital Signs Temp 98.2 F 11/07/21 15:37 Pulse 83 11/08/21 07:00 Resp 15 11/08/21 07:00 BP 129/81 11/08/21 04:33 Pulse Ox 95 11/08/21 07:00 O2 Del Method 11/08/21 07:00 Testing Laboratory Results 11/08/21 05:30 11/08/21 05:30 Urine Color Yellow 11/07/21 19:58 Urine Appearance Clear (Clear) 11/07/21 19:58 Urine pH 6.5 (4.5-7.5) 11/07/21 19:58 Ur Specific [place] > 1.045 (1.000-1.030) H 11/07/21 19:58 Urine Protein Negative (Negative) 11/07/21 19:58 Urine Glucose (UA) Negative (Negative) 11/07/21 19:58 Urine Ketones Trace (Negative) H 11/07/21 19:58 Urine Nitrite Negative (Negative) 11/07/21 19:58 Ur Leukocyte Esterase Negative (Negative) 11/07/21 19:58 Urine WBC (Auto) 1-5 /hpf (0-5) 11/07/21 19:58 Urine RBC (Auto) 0-4 /hpf (0-4) 11/07/21 19:58 U Hyaline Cast (Auto) 0 /lpf (0-5) 11/07/21 19:58 U Epithel Cells (Auto) 0-5 /lpf (0-5) 11/07/21 19:58 Urine Bacteria (Auto) Negative (Negative) 11/07/21 19:58
--- NOTE | 2021-11-08 10:05 | Surgery Progress Note ---
Date of Service November 08, 2021 Assessment & Plan (1) Recurrent ventral hernia with incarceration: Plan: 46-year-old incarcerated male with recurrent incarcerated ventral hernia with resultant small bowel obstruction Plan for diagnostic laparoscopy, robotic assisted laparoscopic ventral hernia repair, possible open, possible bowel resection Risk the procedure were discussed to include but not limited to bleeding, infection, recurrence, damage surrounding structures, need for future more extensive surgery, conversion open, and the risk of anesthesia Patient to be admitted postoperatively, and transferred to my service (2) SBO (small bowel obstruction): (3) Abdominal pain: (4) Vomiting: (5) H/O ventral hernia repair: Admission and Anticipated Discharge Date Admission Date: November 07, 2021 Subjective 46-year-old incarcerated male 1 week status post open repair of multiple incarcerated ventral and umbilical hernias, presents with recurrence and small bowel obstruction. He states that upon returning to assisted he had nausea and vomiting and could not urinate. The night of surgery while he was retching and coughing he felt something pop. Since then he has been unable to have a bowel movement and continually feels bloated. Otherwise not much pain. Review of Systems Review of Systems: All systems reviewed & are unremarkable except as noted in HPI & below Physical Exam Constitutional: WD/WN, vitals as above Respiratory: normal respiratory effort, lungs clear to auscultation Cardiovascular: RRR, no murmur, no edema Gastrointestinal (Abdomen): Inspection/Auscultation: + abdominal surgical incision (Healing well) Percussion/Palpation: + abdomen tender (Mild tenderness to palpation), abdomen soft and + hernia (Incarcerated recurrent ventral hernia); no guarding and abdomen not rigid Results & Data ([facility]) Vital Signs (Past 12 Hours) Vital Signs Pulse Resp BP Pulse Ox O2 Del Method 11/08/21 07:00 83 15 95 Room Air 11/08/21 04:33 97 H 25 H 97 11/08/21 04:33 129/81 11/08/21 04:00 88 14 96 11/08/21 03:00 92 H 19 95 11/08/21 02:00 86 25 H 140/78 97 11/08/21 00:00 84 20 148/96 H 95 11/07/21 23:01 80 23 172/99 H 97 Room Air Laboratory Results Laboratory Results - last 24 hr 11/07/21 11/07/21 11/07/21 17:49 17:49 17:49 WBC 6.23 RBC 5.26 Hgb 14.8 Hct 44.8 MCV 85.2 MCH 28.1 MCHC 33.0 RDW Std Deviation 40.3 RDW Coeff of Roc 13.0 Plt Count 419 H MPV 9.2 L Immature Gran % (Auto) 0.6 Neut % (Auto) 58.5 Lymph % (Auto) 27.3 Bonner % (Auto) 11.4 Eos % (Auto) 1.9 Baso % (Auto) 0.3 Neut # (Auto) 3.64 Lymph # (Auto) 1.70 Bonner # (Auto) 0.71 Eos # (Auto) 0.12 Baso # (Auto) 0.02 Immature Gran # (Auto) 0.04 H Sodium 137 Potassium 3.8 Chloride 97 L Carbon Dioxide 32 Anion Gap 8 BUN 12 Creatinine 1.31 Est Cr Clr Drug Dosing 71.6 Est GFR ( Amer) 76.2 Est GFR (Non-Af Amer) 65.8 BUN/Creatinine Ratio 9.2 L Glucose 103 H Lactate 1.0 Calcium 10.0 Magnesium Total Bilirubin 0.5 AST 20 ALT 32 Alkaline Phosphatase 61 Total Protein 8.1 Albumin 4.3 Globulin 3.8 Albumin/Globulin Ratio 1.1 Lipase 11 Urine Color Urine Appearance Urine pH Ur Specific Adair Urine Protein Urine Glucose (UA) Urine Ketones Urine Blood Urine Nitrite Urine Bilirubin Urine Urobilinogen Ur Leukocyte Esterase Urine WBC (Auto) Urine RBC (Auto) U Hyaline Cast (Auto) U Epithel Cells (Auto) Urine Bacteria (Auto) Nasal Screen MRSA (PCR) SARS-CoV-2, RNA, NAAT 11/07/21 11/07/21 11/07/21 19:58 19:58 20:08 WBC RBC Hgb Hct MCV MCH MCHC RDW Std Deviation RDW Coeff of Roc Plt Count MPV Immature Gran % (Auto) Neut % (Auto) Lymph % (Auto) Bonner % (Auto) Eos % (Auto) Baso % (Auto) Neut # (Auto) Lymph # (Auto) Bonner # (Auto) Eos # (Auto) Baso # (Auto) Immature Gran # (Auto) Sodium Potassium Chloride Carbon Dioxide Anion Gap BUN Creatinine Est Cr Clr Drug Dosing Est GFR ( Amer) Est GFR (Non-Af Amer) BUN/Creatinine Ratio Glucose Lactate 0.8 Calcium Magnesium Total Bilirubin AST ALT Alkaline Phosphatase Total Protein Albumin Globulin Albumin/Globulin Ratio Lipase Urine Color Yellow Urine Appearance Clear Urine pH 6.5 Ur Specific Adair > 1.045 H Urine Protein Negative Urine Glucose (UA) Negative Urine Ketones Trace H Urine Blood Trace H Urine Nitrite Negative Urine Bilirubin Negative Urine Urobilinogen Negative Ur Leukocyte Esterase Negative Urine WBC (Auto) 1-5 Urine RBC (Auto) 0-4 U Hyaline Cast (Auto) 0 U Epithel Cells (Auto) 0-5 Urine Bacteria (Auto) Negative Nasal Screen MRSA (PCR) SARS-CoV-2, RNA, NAAT NEGATIVE 11/07/21 11/08/21 11/08/21 20:09 02:00 05:30 WBC 5.34 RBC 4.57 L Hgb 12.9 L Hct 38.5 L MCV 84.2 MCH 28.2 MCHC 33.5 RDW Std Deviation 39.7 RDW Coeff of Roc 13.0 Plt Count 330 MPV 9.5 Immature Gran % (Auto) 0.7 Neut % (Auto) 61.6 Lymph % (Auto) 24.9 Bonner % (Auto) 10.7 Eos % (Auto) 1.7 Baso % (Auto) 0.4 Neut # (Auto) 3.29 Lymph # (Auto) 1.33 Bonner # (Auto) 0.57 Eos # (Auto) 0.09 Baso # (Auto) 0.02 Immature Gran # (Auto) 0.04 H Sodium Potassium Chloride Carbon Dioxide Anion Gap BUN Creatinine Est Cr Clr Drug Dosing Est GFR ( Amer) Est GFR (Non-Af Amer) BUN/Creatinine Ratio Glucose Lactate Calcium Magnesium 2.1 Total Bilirubin AST ALT Alkaline Phosphatase Total Protein Albumin Globulin Albumin/Globulin Ratio Lipase Urine Color Urine Appearance Urine pH Ur Specific Adair Urine Protein Urine Glucose (UA) Urine Ketones Urine Blood Urine Nitrite Urine Bilirubin Urine Urobilinogen Ur Leukocyte Esterase Urine WBC (Auto) Urine RBC (Auto) U Hyaline Cast (Auto) U Epithel Cells (Auto) Urine Bacteria (Auto) Nasal Screen MRSA (PCR) Negative SARS-CoV-2, RNA, NAAT 11/08/21 05:30 WBC RBC Hgb Hct MCV MCH MCHC RDW Std Deviation RDW Coeff of Roc Plt Count MPV Immature Gran % (Auto) Neut % (Auto) Lymph % (Auto) Bonner % (Auto) Eos % (Auto) Baso % (Auto) Neut # (Auto) Lymph # (Auto) Bonner # (Auto) Eos # (Auto) Baso # (Auto) Immature Gran # (Auto) Sodium 137 Potassium 3.9 Chloride 103 Carbon Dioxide 27 Anion Gap 7 BUN 10 Creatinine 1.13 Est Cr Clr Drug Dosing 83.0 Est GFR ( Amer) 91.1 Est GFR (Non-Af Amer) 78.6 BUN/Creatinine Ratio 8.8 L Glucose 82 Lactate Calcium 8.7 Magnesium Total Bilirubin 0.5 AST 16 ALT 25 Alkaline Phosphatase 51 Total Protein 6.1 D Albumin 3.6 Globulin 2.5 Albumin/Globulin Ratio 1.4 Lipase Urine Color Urine Appearance Urine pH Ur Specific Adair Urine Protein Urine Glucose (UA) Urine Ketones Urine Blood Urine Nitrite Urine Bilirubin Urine Urobilinogen Ur Leukocyte Esterase Urine WBC (Auto) Urine RBC (Auto) U Hyaline Cast (Auto) U Epithel Cells (Auto) Urine Bacteria (Auto) Nasal Screen MRSA (PCR) SARS-CoV-2, RNA, NAAT Diagnostic Findings ABDOMEN AND PELVIS CT WITH IV AND ORAL CONTRAST CT DOSE: 664.61 mGy.cm HISTORY: Acute generalized abdominal pain with prior abdominal hernia repair 6 days earlier. Acute nausea with vomiting. Abdominal pain s/p incarcerated hernia repair TECHNIQUE: Multiaxial CT images of the abdomen and pelvis were performed following the IV administration of 94 cc of Optiray and oral contrast. A dose lowering technique was utilized adhering to the principles of ALARA. COMPARISON STUDY: None. FINDINGS: Clear lung bases. There is no pneumatosis or pneumoperitoneum. Unremarkable spleen, pancreas, gallbladder and adrenal glands. The liver is also within normal limits. Patency of the hepatic and portal veins. 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 1.7 cm cyst of the superior pole left kidney. There are a few subcentimeter hypodensities of the kidneys which are too small to characterize. No hydronephrosis. Unremarkable urinary bladder. The prostate is upper limits of normal in size. Small fat filled left inguinal hernia. Aorta and IVC appear unremarkable. There is no lymphadenopathy. Small fat filled left inguinal hernia. Small hiatal hernia with contrast within the distended distal esophagus. Small bowel obstruction with dilated air and contrast filled loops of small bowel within the central abdomen measuring up to 3.9 cm. Focal transition point is present within the abdominal left lower quadrant on image 246 series 3. Moderate sized umbilical/supraumbilical hernia, diastases of 5.2 x 10.2 cm. The hernia sac contains mesenteric edema with trace ascites, mesenteric fat and nondilated contrast-filled loops of small bowel. Small volume of ascites dependent pelvis. Colonic diverticulosis. Moderate fecal retention. The appendix is fluid-filled and measures within the upper limits of normal at 7 mm. Fluid within the cecum. No acute fracture. IMPRESSION: 1. At least partial small bowel obstruction with transition point within the abdominal left lower quadrant. Contrast extends into decompressed loops of small bowel distal to the site of narrowing. 2. Moderate sized ventral abdominal wall hernia contains mesenteric fat and decompressed loops of small bowel. 3. Mesenteric edema with trace abdominal pelvic ascites. 4. No pneumatosis or pneumoperitoneum. 5. Air-fluid levels are noted within the colon. The appendix is also fluid- filled and measures within the upper limits of normal at 7 mm. Acute appendicitis is considered unlikely. Clinical follow-up recommended. PG Care Time/CCT Total # of Minutes Spent Total Time Spent with Patient: Total time spent is greater than 50% in coordination of care (as documented) at patient's floor/unit and/or counseling patient: Coding Level of Care Code 96171 Subseq Hosp Care Lvl 2 Diagnoses Recurrent ventral hernia with incarceration K43.0 SBO (small bowel obstruction) K56.609 Abdominal pain R10.9 Vomiting R11.10 H/O ventral hernia repair Z98.890; Z87.19
[2021-11-08] MEDS ORDERED: ePHEDrine sulfate 50 MG/ML AMP IV PRN (10:54)
[2021-11-08] MEDS ORDERED: ATROPINE SULFATE 0.1 MG/ML 10ML SYR IV PRN (10:54)
[2021-11-08] MEDS ORDERED: LIDOCAINE 2% 20 MG/ML 5 ML SYR IV ONE (11:01)
[2021-11-08] MEDS ORDERED: ROCURONIUM BROMIDE 10 MG/ML 5 ML VIAL IV ONE (11:01)
[2021-11-08] MEDS ORDERED: PROPOFOL IV EMULSION 10 MG/ML 20 ML VIAL IV ONE (11:01)
[2021-11-08] MEDS ORDERED: MIDAZOLAM HCL 1 MG/ML 2ML VIAL ONE (11:02)
[2021-11-08] MEDS ORDERED: fentaNYL citrate 100 MCG/2 ML VIAL ONE ×2 (11:02→11:56)
[2021-11-08] MEDS ORDERED: SUCCINYLCHOLINE CHLORIDE 20 MG/ML 10 ML VIAL IV ONE (11:17)
[2021-11-08] MEDS ORDERED: BUPIVACAINE 0.5 % 5 MG/1 ML MPF 30ML VIAL ONE (11:40)
[2021-11-08] MEDS ORDERED: KETAMINE 50 MG/5 ML SYRINGE ONE (12:22)
[2021-11-08] MEDS ORDERED: ONDANSETRON INJ 2 MG/ML 2 ML VIAL ONE (12:31)
[2021-11-08] MEDS ORDERED: DEXAMETHASONE SOD INJ 4 MG/ML VIAL ONE (12:31)
[2021-11-08] MEDS ORDERED: ceFAZolin 2000MG 2,000 MG/15 ML SYR IV ONE (13:05)
[2021-11-08] MEDS ORDERED: BUPIVACAINE LIPOSOME 1.3% 266 MG/20 ML VIAL ONE (13:49)
[2021-11-08] MEDS ORDERED: DexMEDEtomidine HCL IV 100 MCG/ML VIAL IV ONE (14:04)
[2021-11-08] MEDS ORDERED: SUGAMMADEX SODIUM 200 MG/2 ML VIAL IV ONE (14:04)
[2021-11-08] MEDS ORDERED: ACETAMINOPHEN 1000 MG/100 ML IV IV ONE (14:04)
--- NOTE | 2021-11-08 14:27 | Operative Report ---
PG Post Operative Report Pre & Post Diagnosis Operation Date: 11/08/21 13:10 Pre-Op Diagnosis: Recurrent ventral hernia with incarceration Post-Op Diagnosis: Recurrent ventral hernia with incarceration I identified the patient and participated in the time-out.: Yes Procedure Operation Date: 11/08/21 13:10 Actual Procedures p Diagnostic Laparoscopy, Robotic lysis of adhesions, Open Repair recurrent incarcerated ventral hernia with Mesh(Not Applicable) - Jorje Mcrae DO, EDIL Surgeon Jorje Mcrae DO, EDIL Supervisory Training Specialist Franklin Cordero Estimated Blood Loss 25 Findings Consistent with Post-Op Diagnosis Diagnostic laparoscopy performed, confirmed bowel containing recurrent ventral hernia. Robotic ports inserted. Performed robotic lysis of adhesions. The hernia appeared to recur along the superior portion of the repair. There were several broken sutures. The old mesh was removed. Was able to reduce a good portion of the small bowel, however there was a portion that was adherent and not able to be reduced. We then converted to open. Small bowel was adherent to the surrounding soft tissue and this was taken down with blunt dissection and scissors. The hernia was completely reduced and the bowel inspected. A small serosal tear was closed with interrupted 3-0 Lembert silk sutures. The remainder of the bowel looked pristine. Primary repair of defect performed with #1 Ethibond interrupted sutures. A 10 x 12 cm piece of Ovitex mesh was then cut to fit the defect in an elliptical fashion. This was secured into place using 0 Vicryl suture. The wound was irrigated and hemostasis achieved. Exparel injected. 15 [place] round MUNIR drain was placed. The umbilicus was tacked down to the mesh using 2-0 Vicryl suture. Skin closed with shira. Sterile dressing and abdominal binder were applied. Specimens None Anesthesia Type General Complications none Disposition Accompanied Patient To Recovery: No Disposition: Recovery Room Indications 46-year-old incarcerated male 1 week status post repair of incarcerated umbilical and ventral hernias with multiple defects. He presented to the emergency department overnight with evidence of recurrent hernia containing small bowel resulting in small bowel obstruction. There is no evidence of strangulation. Plan for diagnostic laparoscopy, robotic assisted laparoscopic ventral hernia pair, possible open, possible bowel resection. The risks of the procedure were discussed, all questions were answered, and the patient agreed to proceed with surgery as planned. Description of Procedure Patient was properly identified, consented, and taken to the operating room where he was placed in the supine position. Gimenez catheter was inserted and an NG tube was already in place. A safety belt and SCDs were placed. His abdomen was prepped and draped in the standard sterile fashion. Preoperative antibiotics were administered. Preoperative timeout was performed and all parties involved were in agreement that this was the correct patient and procedure to be performed and we continued as planned. An incision was made in the left upper quadrant and the Veress needle was inserted. Saline drop test confirmed entry into the abdomen. The abdomen is insufflated with carbon dioxide to the patient tolerated without incident. A 5 mm 30 degree scope was inserted with an 8 mm robotic trocar utilizing the Optiview technique. The abdomen was inspected and confirmed the presence of an incarcerated ventral hernia containing small bowel resulting in a bowel obstruction. No damage from initial trocar placement was identified. 8 mm robotic trochars were then placed in the left lower quadrant and left lateral abdomen. The robot was docked. I began by taking down adhesions using robotic scissors and blunt dissection. We were able to identify the defect. It appeared to occur along the superior portion of the repair. There were some broken sutures as well as some sutures that had slipped. The sutures were removed and the mesh was removed from the abdomen. We attempted with external pressure and gentle traction on the bowel to reduce the hernia. A good portion of the hernia did reduce. The final portion of the hernia would not reduce as it appeared to be adherent to some of the surrounding tissues. We then decided to convert to open. The robot was undocked and the ports were removed. The old incision was reopened and extended superiorly. There was bowel adherent to the backside of the umbilicus as well as the some of the surrounding tissue. This was taken down with blunt dissection and Metzenbaum scissors. The bowel was then eviscerated and inspected. A small serosal tear was repaired with interrupted 3-0 silk Lembert sutures. Otherwise the bowel looked pristine. The bowel was then allowed to drop back into the abdomen. The fascia was freed of fat and investing tissue for several centimeters in all directions. At this point we decided to perform an onlay repair. The fascia was closed with interrupted #1 Ethibond sutures. The wound was irrigated. The repair was approximately 8 to 9 cm in length. A 10 x 12 cm piece of Ovitex mesh was then selected. It was cut into an elliptical fashion to cover the defect by several centimeters in all directions. This was then secured to the fascia using interrupted 0 Vicryl sutures around the perimeter. This was also reinforced along the midline. The wound was again irrigated. Exparel mixed with 0.5% Marcaine was injected in the fascia and subcutaneous tissues. A 15 [place] round MUNIR drain was then placed into the subcutaneous tissue and exited through the right upper quadrant port site. The umbilicus was tacked down to the mesh with 3-0 Vicryl [id number] suture. The skin was closed with interrupted 3-0 Vicryl deep dermal sutures followed by shira. The skin of the port sites was closed with shira. The MUNIR drain was secured into place using 2-0 nylon suture. The abdomen was cleaned and a sterile dressing was applied. An abdominal binder was placed. The patient was extubated in the operating room and taken to the PACU to recover without a pparent incident. He appeared to tolerate the procedure without incident. The Gimenez catheter and NG tube were left in place. All sponge, instrument, and needle counts were correct at the conclusion of the procedure. The physician's membership assistant was present and scrubbed for the entire to the case. He was critical in positioning the patient, prepping and draping, retraction and exposure, assistance with exchange of the robotic instruments, repair the hernia, closure the incisions, placement of the dressings. I attest to the content of the Intraoperative Record and any orders documented therein. Any exceptions are noted below.
[2021-11-08] MEDS: fentaNYL citrate 100 MCG/2 ML VIAL IV PRN ×4 (15:05→15:20)
--- NOTE | 2021-11-08 15:45 | Anesthesiology Progress Note ---
Date of Service November 08, 2021 Anesthesia Post Procedure Vital Signs Vital Signs: Temp Pulse Pulse Pulse Resp BP BP 11/08/21 15:35 36.5 C 91 H 16 142/86 H 11/08/21 15:25 88 16 149/81 H 11/08/21 15:15 79 16 151/86 H 11/08/21 15:05 78 16 141/85 H 11/08/21 14:55 82 16 142/89 H 11/08/21 14:45 84 18 141/94 H 11/08/21 14:38 36.4 C L 89 18 121/82 11/08/21 10:16 37 C 85 18 127/79 11/08/21 07:00 83 15 11/08/21 04:33 97 H 25 H 11/08/21 04:33 129/81 11/08/21 04:00 88 14 11/08/21 03:00 92 H 19 11/08/21 02:00 86 25 H 140/78 11/08/21 00:00 84 20 148/96 H 11/07/21 23:01 80 23 172/99 H 11/07/21 22:00 80 18 143/87 H 11/07/21 21:30 75 23 140/87 11/07/21 21:20 77 19 115/80 11/07/21 21:20 115/80 11/07/21 20:30 86 16 119/84 11/07/21 20:01 73 23 Pulse Ox O2 Del Method O2 Flow Rate 11/08/21 15:35 98 Nasal Cannula 2 11/08/21 15:25 99 Nasal Cannula 2 11/08/21 15:15 99 Nasal Cannula 2 11/08/21 15:05 100 Oxymask 5 11/08/21 14:55 99 Oxymask 5 11/08/21 14:45 98 Oxymask 5 11/08/21 14:38 95 Oxymask 5 11/08/21 10:16 98 Room Air 11/08/21 07:00 95 Room Air 11/08/21 04:33 97 11/08/21 04:33 11/08/21 04:00 96 11/08/21 03:00 95 11/08/21 02:00 97 11/08/21 00:00 95 11/07/21 23:01 97 Room Air 11/07/21 22:00 96 Room Air 11/07/21 21:30 98 Room Air 11/07/21 21:20 98 Room Air 11/07/21 21:20 11/07/21 20:30 98 Room Air 11/07/21 20:01 97 Pain Intensity Abdomen: Pain Intensity: 6 Transfer of Care Handoff Completed per policy Notes Mental Status: alert / awake / arousable Patient Amnestic to Procedure: Yes Nausea / Vomiting: adequately controlled Pain: adequately controlled Airway Patency, RR, SpO2: stable & adequate BP & HR: stable & adequate Hydration State: stable & adequate Anesthetic Complications: no major complications apparent
[2021-11-08] MEDS ORDERED: MoRPHine SULFATE 4 MG/ML 1 ML CARP\\VIAL IV PRN (15:56)
[2021-11-08] MEDS: ACETAMINOPHEN 1,000 MG/100 ML VIAL IV SCH (16:59)
[2021-11-08] MEDS: ONDANSETRON INJ 2 MG/ML 2 ML VIAL IV PRN (20:12)
[2021-11-08] MEDS: cefOXitin 2,000 MG in DEXTROSE 5% 50 ML IV SCH (20:13)
[2021-11-08] MEDS ORDERED: MONTELUKAST SODIUM 10 MG TABLET PO SCH (21:00)
[2021-11-09] MEDS: LACTATED RINGER'S 1,000 ML IV SCH ×3 (00:44→17:31)
[2021-11-09] MEDS: ACETAMINOPHEN 1,000 MG/100 ML VIAL IV SCH ×3 (00:44→17:31)
[2021-11-09] MEDS: cefOXitin 2,000 MG in DEXTROSE 5% 50 ML IV SCH ×3 (00:45→13:32)
[2021-11-09] MEDS: MoRPHine SULFATE 2 MG/ML CARP IV PRN (03:15)
[2021-11-09] MEDS: ONDANSETRON INJ 2 MG/ML 2 ML VIAL IV PRN ×2 (03:15→22:06)
[2021-11-09] MEDS: PANTOprazole 40 MG in SYRINGE 0 ML IV SCH ×2 (08:20→19:59)
[2021-11-09] MEDS ORDERED: KETOROLAC TROMETHAMINE 15 MG/ML VIAL IV ONE (08:25)
[2021-11-09] MEDS ORDERED: KETOROLAC TROMETHAMINE 15 MG/ML VIAL IV PRN (08:25)
--- NOTE | 2021-11-09 08:29 | Surgery Progress Note ---
Date of Service November 09, 2021 Assessment & Plan (1) Recurrent ventral hernia with incarceration: Plan: POD 1 open repair recurrent hernia d/c NG, maybe sips/clears later d/c carranza add prn Toradol to morphine and Ofirmev ambulate maintain drain/binder labs pending Admission and Anticipated Discharge Date Admission Date: November 07, 2021 Supervising Physician Co-Signing Physician Notes Patient seen and examined, labs and imaging reviewed, agree with above. 46-year-old incarcerated male POD #1 diagnostic laparoscopy, robotic assisted laparoscopic lysis of adhesions, open repair of early recurrence of ventral hernia with bowel obstruction with ovitex mesh. Overall doing well, feeling much better than prior to surgery. NG tube and Carranza removed this morning. Tolerating clear liquid tray at this time. Abdomen is soft, probably tender to palpation, nondistended. MUNIR drain serosanguineous with minimal output. Incision clean dry and intact. We will continue to advance diet as tolerated, DC within the next day or 2. Subjective pain control adequate, c/o irritation from NGT Physical Exam Gastrointestinal (Abdomen): Inspection/Auscultation: + abdominal surgical incision (binder, dressing intact) and + abdominal surgical drain present (25 cc) Percussion/Palpation: abdomen soft Results & Data ([facility]) Vital Signs (Past 12 Hours) Vital Signs Temp Pulse Resp BP Pulse Ox O2 Del Method O2 Flow Rate 11/09/21 07:24 37.1 C 99 H 14 136/85 94 Room Air 11/09/21 03:09 37.2 C 97 H 18 141/80 H 94 11/08/21 22:58 36.7 C 97 H 18 137/85 99 11/08/21 20:28 Nasal Cannula 2 PG Care Time/CCT Total # of Minutes Spent Total Time Spent with Patient: Total time spent is greater than 50% in coordination of care (as documented) at patient's floor/unit and/or counseling patient: Coding Level of Care Code None Diagnoses Recurrent ventral hernia with incarceration K43.0
[2021-11-09 08:33] LABS: BUN Creatinine Ratio 9.5 (10-20); Calcium 8.7 mg/dl (8.5-10.1); Creatinine Clr Calc Pharmacy 89.3 ml/min; Est GFR (African American) 99.6 ml/min; Est GFR (Non-African American) 85.9 ml/min; Potassium 4.1 mmol/L (3.5-5.1)
[2021-11-09 08:58] LABS: Basophils # (auto) 0.01 K/uL (0-0.2); Basophils % (auto) 0.1 %; Eosinophils # (auto) 0.01 K/uL (0-0.50); Eosinophils % (auto) 0.1 %; Hematocrit (blood only) 38.6 % (40.1-51.0); Hemoglobin 13.1 g/dl (14.0-18.0); Immature Granulocytes # (auto) 0.02 K/uL (0.00-0.02); Immature Granulocytes % (auto) 0.3 %; Lymphocytes # (auto) 1.03 K/uL (1.2-3.4); Lymphocytes % (auto) 14.3 %; Mean Corpuscular Hemoglobin 28.3 pg (25.0-34.0); Mean Corpuscular Hgb Conc 33.9 g/dL (32.0-36.0); Mean Corpuscular Volume 83.4 fL (80.0-100.0); Mean Platelet Volume 9.7 fL (9.4-12.4); Monocytes # (auto) 0.85 K/uL (0.24-0.82); Monocytes % (auto) 11.8 %; Neutrophils # (auto) 5.29 K/uL (1.4-6.5); Neutrophils % (auto) 73.4 %; Platelet Count 380 K/uL (130-400); RDW Coefficient of Variation 13.2 % (11.5-14.5); RDW Standard Deviation 39.9 fL (36.4-46.3); Red Blood Count 4.63 M/uL (4.63-6.08); White Blood Count 7.21 K/ul (4.8-10.8)
[2021-11-10] MEDS: LACTATED RINGER'S 1,000 ML IV SCH ×3 (01:35→21:34)
[2021-11-10] MEDS: ACETAMINOPHEN 1,000 MG/100 ML VIAL IV SCH ×3 (01:36→17:06)
[2021-11-10] MEDS: PANTOprazole 40 MG in SYRINGE 0 ML IV SCH (08:51)
--- NOTE | 2021-11-10 09:16 | Surgery Progress Note ---
Date of Service November 10, 2021 Assessment & Plan (1) Recurrent ventral hernia with incarceration: Plan: POD 2 open repair recurrent hernia Vital signs stable. labs pending Voiding since carranza removal Incisions c/d/i; no signs of infection. MUNIR drain 50cc sanguinous output Abdomen soft, expected eliot incisional ttp, some distention Pt starting to have + bowel function, loose stools Will continue to slowly advance diet as tolerates, full liquids for lunch. Decre ase IVF Continue IV apap, prn toradol, prn morphine/oxy as needed Admission and Anticipated Discharge Date Admission Date: November 07, 2021 Supervising Physician Co-Signing Physician Notes Patient seen and examined, labs and imaging reviewed, agree with above. 46-year-old incarcerated male POD #2 diagnostic laparoscopy, robotic assisted laparoscopic lysis of adhesions, open repair of early recurrence of ventral hernia with bowel obstruction with ovitex mesh. Overall doing well, feeling much better than prior to surgery. Some bloating after meals. Tolerating clear liquid tray at this time. Abdomen is soft, appropriately tender to palpation, nondistended. MUNIR drain serosanguineous with minimal output. Incision clean dry and intact. We will continue to advance diet as tolerated, likely discharge in the next day or 2 Subjective Pt doing okay. Starting to have BM's (loose stools). Tolerating small amounts of clears. Had episode of nausea yesterday evening that has since passed. Abdominal pain present, but manageable with medications. Physical Exam Physical Exam: awake/alert, no distress Respiratory: normal respiratory effort Gastrointestinal (Abdomen): Inspection/Auscultation: + abdominal surgical incision (c/d/i with surgical shira, no signs of infection) and + abdominal surgical drain present (50cc sang. ) Percussion/Palpation: + abdomen tender (expected eliot incisional discomfort to palpation) and abdomen soft Results & Data ([facility]) Vital Signs (Past 12 Hours) Vital Signs Temp Pulse Resp BP Pulse Ox O2 Del Method 11/10/21 07:16 37.3 C 99 H 16 146/88 H 95 Room Air 11/09/21 22:04 37.0 C 102 H 16 125/77 95 Room Air PG Care Time/CCT Total # of Minutes Spent Total Time Spent with Patient: Total time spent is greater than 50% in coordination of care (as documented) at patient's floor/unit and/or counseling patient: Coding Level of Care Code None Diagnoses Recurrent ventral hernia with incarceration K43.0
[2021-11-10] MEDS ORDERED: oxyCODONE HCL IR 5 MG TAB (IMMEDIATE RELEASE) PO PRN (09:17)
[2021-11-10 09:34] LABS: Basophils # (auto) 0.02 K/uL (0-0.2); Basophils % (auto) 0.3 %; Eosinophils # (auto) 0.11 K/uL (0-0.50); Eosinophils % (auto) 1.4 %; Hemoglobin 10.9 g/dl (14.0-18.0); Immature Granulocytes # (auto) 0.05 K/uL (0.00-0.02); Immature Granulocytes % (auto) 0.6 %; Lymphocytes # (auto) 1.63 K/uL (1.2-3.4); Lymphocytes % (auto) 20.9 %; Mean Corpuscular Hemoglobin 28.2 pg (25.0-34.0); Mean Corpuscular Hgb Conc 34.1 g/dL (32.0-36.0); Mean Corpuscular Volume 82.9 fL (80.0-100.0); Monocytes # (auto) 0.74 K/uL (0.24-0.82); Monocytes % (auto) 9.5 %; Neutrophils # (auto) 5.25 K/uL (1.4-6.5); Neutrophils % (auto) 67.3 %; Platelet Count 332 K/uL (130-400); RDW Standard Deviation 39.4 fL (36.4-46.3); Red Blood Count 3.86 M/uL (4.63-6.08)
[2021-11-10 09:57] LABS: BUN Creatinine Ratio 7.9 (10-20); Calcium 8.4 mg/dl (8.5-10.1); Creatinine Clr Calc Pharmacy 92.9 ml/min; Est GFR (African American) 104.4 ml/min; Potassium 3.5 mmol/L (3.5-5.1)
[2021-11-10] MEDS: MoRPHine SULFATE 2 MG/ML CARP IV PRN (14:38)
[2021-11-11] MEDS: ACETAMINOPHEN 1,000 MG/100 ML VIAL IV SCH ×2 (00:36→12:29)
--- NOTE | 2021-11-11 05:47 | Surgery Progress Note ---
Date of Service November 11, 2021 Assessment & Plan (1) Recurrent ventral hernia with incarceration: Plan: Status post repair of ventral hernia on 11/08/2021 (postop day #3) Continue full liquid diet for the present time; will consider advancing to solid food later this morning Continue IV fluids until certain oral intake will be adequate Continue MUNIR drain to bulb suction Continue analgesics Continue antiemetics Mobilize as able Discharge once able to tolerate diet advancement Admission and Anticipated Discharge Date Admission Date: November 07, 2021 Supervising Physician Co-Signing Physician Notes Patient seen and examined, labs and imaging reviewed, agree with above. 46-year-old incarcerated male POD #3 diagnostic laparoscopy, robotic assisted laparoscopic lysis of adhesions, open repair of early recurrence of ventral hernia with bowel obstruction with ovitex mesh. Overall doing well, feeling much better than prior to surgery. Tolerating full liquid diet. Starting to have loose bowel movements. Abdomen is soft, appropriately tender to palpation, nondistended. MUNIR drain serosanguineous with minimal output. Incision clean dry and intact. advance diet to low fiber, likely discharge tomorrow if tolerates. Add DVT prophylaxis Subjective Patient is resting comfortably in bed. At the present time he notes he is tolerating liquid diet. He notes some minor abdominal pain and some intermittent nausea. He denies any fevers, shakes, or chills. Physical Exam Gastrointestinal (Abdomen): Abdomen is minimally distended but nonrigid. Bowel sounds are present. Surgical incisions are clean, dry, intact. MUNIR drain is in place with some serosanguineous fluid. Results & Data ([facility]) Vital Signs (Past 12 Hours) Vital Signs Temp Pulse Resp BP Pulse Ox O2 Del Method 11/10/21 21:38 36.6 C 85 16 133/86 94 Room Air PG Care Time/CCT Total # of Minutes Spent Total Time Spent with Patient: Total time spent is greater than 50% in coordination of care (as documented) at patient's floor/unit and/or counseling patient: Coding Level of Care Code None Diagnoses Recurrent ventral hernia with incarceration K43.0
[2021-11-11] MEDS: LACTATED RINGER'S 1,000 ML IV SCH ×2 (12:29→22:42)
[2021-11-11] MEDS: ENOXAPARIN INJ 40 MG/0.4 ML SYR SQ SCH (12:30)
[2021-11-12] MEDS ORDERED: ALUMINUM/MAGNESIUM/SIMETH (MAALOX MAX) 30 ML UDC PO PRN (02:59)
--- NOTE | 2021-11-12 05:21 | Surgery Progress Note ---
Date of Service November 12, 2021 Assessment & Plan (1) Recurrent ventral hernia with incarceration: Plan: Status post repair of ventral hernia on 11/08/2021 (postop day #4) Diet advanced to solids on 11/13/2021; continue diet as tolerated Continue MUNIR drain to bulb suction Continue analgesics Continue antiemetics Increase activity as able Patient requested Mylanta due to feeling bloated which has been ordered Admission and Anticipated Discharge Date Admission Date: November 07, 2021 Supervising Physician Co-Signing Physician Notes Patient seen and examined, labs and imaging reviewed, agree with above. 46-year-old incarcerated male POD #4 diagnostic laparoscopy, robotic assisted laparoscopic lysis of adhesions, open repair of early recurrence of ventral hernia with bowel obstruction with ovitex mesh. Overall doing well, feeling much better than prior to surgery. Tolerating low fiber diet. Having bowel movements and passing flatus. Abdomen is soft, appropriately tender to palpation, nondistended. MUNIR drain serosanguineous with minimal output. Incision clean dry and intact. We will DC the drain given his living condition, and discharge today. Activity restrictions and wound care instructions reviewed. Staple removal in 10 to 14 days. Follow-up in 2 to 3 weeks in general surgery clinic. Subjective I was called by RN noting the patient was complaining of lower abdominal discomfort with a feeling of "bloatedness." Upon arrival to bedside patient notes that his abdomen was not really painful but he did note some intermittent bloating. He denies any nausea or vomiting. He notes that his bowels have been moving. Physical Exam Gastrointestinal (Abdomen): Abdomen is soft and nonrigid. It is nondistended. Bowel sounds are present. There is minimal pain with palpation near surgical incision. Results & Data ([facility]) Vital Signs (Past 12 Hours) Vital Signs Temp Pulse Resp BP Pulse Ox O2 Del Method 11/11/21 22:47 37.1 C 81 20 128/73 98 Room Air PG Care Time/CCT Total # of Minutes Spent Total Time Spent with Patient: Total time spent is greater than 50% in coordination of care (as documented) at patient's floor/unit and/or counseling patient: Coding Level of Care Code None Diagnoses Recurrent ventral hernia with incarceration K43.0
[2021-11-12] MEDS: ONDANSETRON INJ 2 MG/ML 2 ML VIAL IV PRN (10:04)
[2021-11-12] MEDS: LACTATED RINGER'S 1,000 ML IV SCH (10:14)
[2021-11-12] MEDS: ENOXAPARIN INJ 40 MG/0.4 ML SYR SQ SCH (10:15)
--- NOTE | 2021-11-13 08:28 | Surgery Progress Note ---
Date of Service November 13, 2021 Assessment & Plan (1) Recurrent ventral hernia with incarceration: Plan: POD#5 recurrent ventral hernia repair Pt clinically doing well. Tolerating a diet, + bowel function, pain controlled Surgical incisions c/d/i with shira. MUNIR drain site healing and covered with 4x4 gauze Will plan on dispo back to jail today. F/U in clinic with Dr. Mcrae in in 2wks and can have shira removed in 10-14 days Admission and Anticipated Discharge Date Admission Date: November 07, 2021 Subjective Patient feeling well. Pain controlled. Tolerating a diet. + bowel function. Physical Exam Physical Exam: awake/alert, no distress Gastrointestinal (Abdomen): Inspection/Auscultation: + abdominal surgical incision (c/d/i with skin shira) Percussion/Palpation: abdomen soft; abdomen nontender small clear fluid filled blister on left side of abdomen Results & Data ([facility]) Vital Signs (Past 12 Hours) Vital Signs Temp Pulse Resp BP Pulse Ox O2 Del Method 11/13/21 06:56 36.8 C 72 16 117/79 97 Room Air 11/12/21 22:32 37.2 C 88 16 119/80 96 Room Air PG Care Time/CCT Total # of Minutes Spent Total Time Spent with Patient: Total time spent is greater than 50% in coordination of care (as documented) at patient's floor/unit and/or counseling patient: Coding Level of Care Code None Diagnoses Recurrent ventral hernia with incarceration K43.0
[2021-11-13] MEDS: ENOXAPARIN INJ 40 MG/0.4 ML SYR SQ SCH (11:33)
--- NOTE | 2021-11-15 12:43 | Discharge Summary ---
Date of Service November 13, 2021 Principal Diagnosis Recurrent ventral hernia Discharge Exam Constitutional WD/WN, vitals as above Gastrointestinal (Abdomen) Inspection/Auscultation: + abdominal surgical incision (clean, dry); abdomen not distended Percussion/Palpation: abdomen soft Discharge Data Allergies Allergy/AdvReac Type Severity Reaction Status Date / Time wool Allergy Mild Unknown Verified 11/07/21 20:06 Consultations 11/07/21 19:51 ED Decision to Admit Stat 11/07/21 22:27 Consult General Surgery Stat Procedures Performed Operation Date: 11/08/21 13:10 Actual Procedures p Diagnostic Laparoscopy, Robotic lysis of adhesions, Open Repair recurrent incarcerated ventral hernia with Mesh(Not Applicable) - Jorje Mcrae DO, FACS Ordered Studies 11/07/21 15:40 CT abd pelvis oral and IV con Stat Hospital Course (1) Recurrent ventral hernia with incarceration: 46 y/o male inmate presented to the ED one week after open ventral hernia repair with persistent N/V. CT showed recurrent hernia with incarcerated small bowel. He was admitted overnight and taken to the operating room the next day for repair. We were not able to reduce the bowel laparoscopically and converted to open repair with Ovitex mesh. He was returned to the surgical floor. Diet was advanced slowly. He had some bloating after starting regular diet on POD 3. By day 5 he was tolerating diet and having multiple bowel movements. MUNIR drain had been removed. He was stable for return back to skilled nursing. Total Time Total Time Spent Total Time Spent (In Minutes): 15 Discharge Plan Discharge Items Patient Disposition: Correction[facility] Facility Reason For Visit: VOMITING, LOWER ABDOMINAL PAIN Discharge Diagnosis: open ventral hernia repair Activity: Per Instructions section Lifting: No more than 10 pounds Bathing Comment: may shower; no soaking in tubs/pools Exercise/Sports: Wait until after follow-up appointment Non-emergency contact: Surgeon Call non-emergency contact if: you have any medication questions, your symptoms worsen, your pain is not controlled, your pain is concerning for you, you have a fever, your temperature is above 101.5, your wound has increased redness, your wound has increased drainage and your wound pain has increased Follow-up/Referrals: Jorje Mcrae DO, FACS [Physician] - (Please call to schedule follow up in clinic within 2 weeks ) Adama JOY [Primary Care Provider] - Diet: Regular Addtl Attending Provider Instructions: You have surgical shira in place that should be removed in 10-14 days If your facility provides it you may take Tylenol #3 if needed for moderate to severe pain. Otherwise you may take plain Tylenol and/or Ibuprofen for pain per manufacturers instructions. You should continue to wear your abdominal binder while you are up and moving about. May take it off to shower Pending Studies at Discharge: No Stand-Alone Forms: My [facility] Skilled Items Patient informed of condition?: Yes Discharge Level of Care: Other Communicable Disease: No Discharge Prognosis: Stable Lines: None Urinary Catheter: No Medications and DC Order Prescriptions: Continued montelukast 10 mg tablet 10 mg PO DAILY albuterol sulfate 90 mcg/actuation HFA aerosol inhaler 2 puff inhalation QID PRN (Reason: Shortness Of Breath) rosuvastatin 10 mg Tablet 10 mg PO DAILY lactulose 10 gram/15 mL (15 mL) Solution 20 g PO BID PRN (Reason: Constipation) Discharge Orders: Discharge Order (Routine); Ordered 11/12/21 Ordered By: Daron Sparrow Admission Data Admit Date/Time: 11/07/21 22:22 Attending Provider: Jorje Mcrae Admit Provider: Kirstin Pimentel Primary Care Provider: Adama JOY Other Providers: Kirstin Pimentel Other Interventions: Discharge Summary Assessment (RN) Last Done: 11/12/21 13:56 Coding Level of Care Code D/C DAY MANAGEMENT <30 MINS Diagnoses Recurrent ventral hernia with incarceration K43.0
== END 2021-11-13 12:43 | DRG 337 ==
LOC: ED 15:33 → EDINP 22:22 → 3W 11-08 16:02
DX: E78.5 Hyperlipidemia, unspecified; Z20.822 Contact with and (suspected) exposure to COVID-19; J45.909 Unspecified asthma, uncomplicated; K43.0 Incisional hernia with obstruction, without gangrene; Z53.31 Laparoscopic surgical procedure converted to open procedure; Z79.899 Other long term (current) drug therapy; Z91.048 Other nonmedicinal substance allergy status; K66.0 Peritoneal adhesions (postprocedural) (postinfection)